=== PATIENT | male | born 1980 | race Caucasian/White ===

== ENCOUNTER 2016-09-17 17:05 | Inpatient (IN) | payer SELFPAY ==
[~2016-09-17] VITALS: Ht 180.3 cm; Wt 82.0 kg
[2016-09-17] MEDS ORDERED: [UNRECOGNIZED DRUG - OTHER] PO (17:10)
[2016-09-17 18:45] LABS: EOSINOPHILS % (AUTO) 0.1 % (1.0-6.0); HEMATOCRIT 39.1 % (41-53); HEMOGLOBIN 13.4 g/dL (13.5-17.5); LYMPHOCYTES # (AUTO) 0.8 K/uL (1.0-4.8); LYMPHOCYTES % (AUTO) 8.5 % (22.0-44.0); MEAN CORPUSCULAR HEMOGLOBIN 29.4 pg (26.0-34.0); MEAN CORPUSCULAR HGB CONC 34.3 G/dL (31.0-37.0); MEAN CORPUSCULAR VOLUME 86 fL (80-100); MONOCYTES # (AUTO) 0.7 K/uL (0.1-1.0); MONOCYTES % (AUTO) 7.8 % (2.0-9.0); NEUTROPHILS % (AUTO) 83.6 % (40.0-70.0); PLATELET COUNT (AUTO) 319 K/uL (150-450); RED BLOOD CELL COUNT(AUTO) 4.56 MIL/uL (4.50-5.90); RED CELL DISTRIBUTION WIDTH 13.7 % (11.5-14.5); WHITE BLOOD COUNT (AUTO) 9.6 K/uL (4.5-11.0)
[2016-09-17 18:57] LABS: ANION GAP 8 mmol/L (8-16); CALCIUM, TOTAL 9.3 mg/dL (8.8-10.5); CARBON DIOXIDE 29 mmol/L (22-29); CHLORIDE 101 mmol/L (98-107); CREATININE 0.92 mg/dL (0.60-1.30); GLOMERULAR FILTR. RATE CALC > 60 mL/min (>60); POTASSIUM 3.7 mmol/L (3.5-5.1); SODIUM SERUM 138 mmol/L (136-145); UREA NITROGEN, BLOOD 10 mg/dL (7-18)
[2016-09-17 19:03] LABS: ALANINE AMINOTRANSFERASE 22 U/L (12-78); ALBUMIN 3.7 g/dL (3.4-5.0); ASPARTATE AMINOTRANSFERASE 29 U/L (15-37); BILIRUBIN,TOTAL 0.4 mg/dL (0.1-1.0); TOTAL PROTEIN, SERUM 7.1 g/dL (6.4-8.2)
[2016-09-17] MEDS ORDERED: MAGNESIUM HYDROXIDE SUSPENSION 30 ML UDCUP PO PRN (21:15)
[2016-09-17] MEDS ORDERED: ACETAMINOPHEN 325 MG TABLET PO PRN (21:15)
[2016-09-17] MEDS ORDERED: ONDANSETRON HCL 4 MG/2 ML VIAL IVP PRN (21:15)
[2016-09-17] MEDS ORDERED: BISACODYL 10 MG RECTAL RECTAL SUPPOSITORY PR PRN (21:15)
[2016-09-17] MEDS ORDERED: SODIUM CHLORIDE 0.9% 1,000 ML IV ONE (21:30)
[2016-09-17 21:45] LABS: PROTHROMBIN TIME 10.3 SEC (9.4-11.6)
[2016-09-17] MEDS ORDERED: IOVERSOL 350 MG/ML 100 ML VIAL ONE (21:56)
[2016-09-17] MEDS ORDERED: SODIUM CHLORIDE 0.9% 100 ML ONE (21:56)
[2016-09-17 22:52] VITALS: BP 116/73
[2016-09-18] VITALS (7 sets, daily range): BP systolic 109–118; BP diastolic 63–72
[2016-09-18] MEDS ORDERED: DEXTROSE 5%-0.45% SODIUM CHL 1,000 ML IV SCH (08:15)
[2016-09-18] MEDS ORDERED: BARIUM SULFATE 0.1% SUSPENSION 450 ML BOTTLE ONE (08:19)
[2016-09-18] MEDS ORDERED: IOVERSOL 350 MG/ML 150 ML VIAL ONE (08:19)
[2016-09-18] MEDS ORDERED: SODIUM CHLORIDE 0.9% 100 ML ONE (08:19)
[2016-09-18] MEDS: PANTOPRAZOLE SODIUM 40 MG DR TABLET PO SCH (09:00)
[2016-09-18] MEDS: DOCUSATE SODIUM 100 MG CAPSULE PO SCH ×2 (09:00→20:31)
[2016-09-18] MEDS: ENOXAPARIN SODIUM 40 MG/0.4 ML PF SYRINGE SQ SCH (10:53)
[2016-09-18] MEDS: OxyCODONE HCL/ACETAMINOPHEN 5-325 MG TABLET PO PRN (18:13)
[2016-09-19] MEDS: MORPHINE SULFATE 2 MG/ML SYRINGE IVP PRN ×2 (01:27→09:39)
[2016-09-19 04:00] VITALS: BP 100/59
[2016-09-19 06:38] LABS: BASOPHILS % (AUTO) 0.1 % (0.0-2.0); EOSINOPHILS % (AUTO) 0.3 % (1.0-6.0); HEMATOCRIT 37.8 % (41-53); HEMOGLOBIN 12.8 g/dL (13.5-17.5); LYMPHOCYTES % (AUTO) 12.9 % (22.0-44.0); MEAN CORPUSCULAR HEMOGLOBIN 29.6 pg (26.0-34.0); MEAN CORPUSCULAR VOLUME 87 fL (80-100); MONOCYTES # (AUTO) 0.9 K/uL (0.1-1.0); MONOCYTES % (AUTO) 12.3 % (2.0-9.0); NEUTROPHILS # (AUTO) 5.7 K/uL (1.8-7.7); NEUTROPHILS % (AUTO) 74.4 % (40.0-70.0); PLATELET COUNT (AUTO) 291 K/uL (150-450); RED BLOOD CELL COUNT(AUTO) 4.33 MIL/uL (4.50-5.90); WHITE BLOOD COUNT (AUTO) 7.6 K/uL (4.5-11.0)
[2016-09-19 06:56] LABS: ANION GAP 7 mmol/L (8-16); CALCIUM, TOTAL 9.1 mg/dL (8.8-10.5); CARBON DIOXIDE 28 mmol/L (22-29); CHLORIDE 102 mmol/L (98-107); CREATININE 0.78 mg/dL (0.60-1.30); GLOMERULAR FILTR. RATE CALC > 60 mL/min (>60); POTASSIUM 3.9 mmol/L (3.5-5.1); SODIUM SERUM 137 mmol/L (136-145); UREA NITROGEN, BLOOD 10 mg/dL (7-18)
[2016-09-19 07:25] VITALS: BP 111/57
[2016-09-19] MEDS: OxyCODONE HCL/ACETAMINOPHEN 5-325 MG TABLET PO PRN ×2 (07:43→14:39)
[2016-09-19] MEDS: DOCUSATE SODIUM 100 MG CAPSULE PO SCH (07:44)
[2016-09-19] MEDS: PANTOPRAZOLE SODIUM 40 MG DR TABLET PO SCH (07:44)
[2016-09-19] MEDS: ENOXAPARIN SODIUM 40 MG/0.4 ML PF SYRINGE SQ SCH (07:44)
[2016-09-19 11:46] VITALS: BP 106/61
[2016-09-19] MEDS ORDERED: HYDR-309 PO (14:25)
[2016-09-19] MEDS ORDERED: DSS100 PO (14:25)
== END 2016-09-19 17:10 | disposition home or self-care (01) | DRG 607 ==
LOC: EMS 17:07 → 6N 20:30
PROVIDERS: ADMIT Internal Medicine; ATTEND Internal Medicine
PROC: 0JB43ZX Excision of Right Neck Subcutaneous Tissue and Fascia, Percutaneous Approach, Diagnostic (ICD-10-PCS; principal; 2016-09-18)
DX: R22.1 Localized swelling, mass and lump, neck (principal); I87.1 Compression of vein; F17.210 Nicotine dependence, cigarettes, uncomplicated; F19.10 Other psychoactive substance abuse, uncomplicated; F15.90 Other stimulant use, unspecified, uncomplicated
CPT/HCPCS: 21550; 70470; 70491; 71260; 72193; 74160; 76942; 80307; 93971; 99285; J1650; J2270; J7030; J7050

== ENCOUNTER 2019-07-21 14:58 | Emergency (ER) | payer OTHER ==
[~2019-07-21] VITALS: Ht 180.3 cm; Wt 88.6 kg
[~2019-07-21 14:58] MED LIST: DSS100 PO; HYDR-309 PO
[2019-07-21 16:16] VITALS: BP 132/86
== END 2019-07-21 16:20 | disposition home or self-care (01) ==
LOC: EMS 15:04
DX: Z45.2 Encounter for adjustment and management of vascular access device (principal); F17.210 Nicotine dependence, cigarettes, uncomplicated; F12.90 Cannabis use, unspecified, uncomplicated